=== PATIENT | male | born 1985 | race Caucasian/White ===

== ENCOUNTER 2022-07-09 00:50 | Inpatient (IN) | payer MEDICAID ==
[~2022-07-09] VITALS: Ht 157.5 cm; Wt 81.6 kg
[2022-07-09 01:14] VITALS: BP 149/90
[2022-07-09] MEDS ORDERED: DICYCLOMINE HCL LIQUID 10 MG/5 ML UDC PO ONE (01:35)
[2022-07-09] MEDS ORDERED: FAMOTIDINE 20 MG TAB PO ONE (01:35)
[2022-07-09] MEDS ORDERED: ONDANSETRON 4 MG ODT PO ONE (01:35)
[2022-07-09] MEDS ORDERED: ALUMINUM HYD/MAG/SIMETHICONE 30 ML UDC PO ONE (01:35)
[2022-07-09 01:57] LABS: APPEARANCE,URINE CLEAR (CLEAR); BILIRUBIN,URINE NEGATIVE (NEGATIVE); BLOOD, URINE NEGATIVE (NEGATIVE); COLOR,URINE YELLOW (YELLOW); LEUKOCYTE ESTERASE ,URINE NEGATIVE (NEGATIVE); NITRITE, URINE NEGATIVE (NEGATIVE); UGLUCOSE NEGATIVE (NEGATIVE)
--- NOTE | 2022-07-09 01:58 | NUR ---
Patient received on bed lying comfortably and awake. Alert and oriented x4. No acute distress. Complained of abdominal pain with the scale of 6/10. Respirations even and unlabored.
[2022-07-09 02:09] LABS: ALBUMIN 3.8 g/dL (3.4-5.0); CARBON DIOXIDE 28.9 mmol/L (21-32); CREATININE 1.1 mg/dL (0.6-1.3); POTASSIUM 3.9 mmol/L (3.5-5.1); TOTAL BILIRUBIN 0.2 mg/dL (0.0-1.0)
[2022-07-09 02:15] LABS: BASOPHILS # (AUTO) 0.1 K/uL (0.00-0.22); BASOPHILS % (AUTO) 0.3 % (0.0-2.0); EOSINOPHILS # (AUTO) 0.1 K/uL (0-0.4); EOSINOPHILS % (AUTO) 0.7 % (0.0-4.0); HEMATOCRIT 45.2 % (36-52); HEMOGLOBIN 15.7 g/dL (12.0-18.0); LYMPHOCYTES # (AUTO) 1.9 K/uL (2.0-11.5); LYMPHOCYTES % (AUTO) 9.5 % (20.5-51.1); MEAN CORPUSCULAR HEMOGLOBIN 30 pg (27-31); MEAN CORPUSCULAR HGB CONC 35 g/dL (33-37); MEAN CORPUSCULAR VOLUME 86.7 fL (80-94); MONOCYTES # (AUTO) 1.1 K/uL (0.8-1.0); MONOCYTES % (AUTO) 5.6 % (1.7-9.3); NEUTROPHILS # (AUTO) 16.5 K/uL (1.8-7.7); PLATELET COUNT (AUTO) 288 K/uL (140-450); RED BLOOD CELL COUNT(AUTO) 5.21 MIL/uL (4.20-6.10); RED CELL DISTRIBUTION WIDTH 13.3 % (11.6-13.7); WHITE BLOOD COUNT (AUTO) 19.7 K/uL (4.8-10.8)
[2022-07-09 02:25] LABS: NEUTROPHILS % (AUTO) 83.9 % (42.2-75.2)
--- NOTE | 2022-07-09 04:03 | NUR ---
[facility] TRANSPORT AT BEDSIDE
--- NOTE | 2022-07-09 04:08 | NUR ---
PT TAKEN BY [facility] TRANSPORT FOR WAIT AND RETURN TO [facility]
--- NOTE | 2022-07-09 04:14 | NUR ---
Patient was transported via gurney on an ambulance to [facility] for CT scan and accompanied by 2 cargo operations agent. Vital signs stable. No acute distress.
--- NOTE | 2022-07-09 05:02 | NUR ---
PT RETURN FROM [facility] BACK TO ER BED 9
[2022-07-09] MEDS ORDERED: HYDROcodone/APAP 5/325 MG 1 TAB TAB PO ONE (05:25)
[2022-07-09] MEDS ORDERED: ACETAMINOPHEN 325 MG TAB PO PRN (08:45)
[2022-07-09] MEDS ORDERED: DOCUSATE SODIUM 100 MG GELCAP PO PRN (08:45)
[2022-07-09] MEDS ORDERED: LORazepam 2 MG/ML VIAL IVP PRN (08:45)
[2022-07-09] MEDS ORDERED: ZOLPIDEM 10 MG TAB PO PRN (08:45)
[2022-07-09] MEDS ORDERED: POTASSIUM CHLORIDE 10 MEQ TABER PO PRN (08:45)
[2022-07-09] MEDS ORDERED: MAG SULF 2000 MG/WATER PREMIX 50 ML IV PRN (08:45)
[2022-07-09] MEDS ORDERED: ONDANSETRON 4 MG/2 ML VIAL IVP PRN ×2 (08:45→12:05)
[2022-07-09] MEDS ORDERED: MORPHINE SULFATE 2 MG/ML SYR IVP PRN (08:45)
--- NOTE | 2022-07-09 09:01 | NUR ---
Patient will be admitted to care of . Admited to Med-surg. Will go to room 111A. Belongings list completed. Report to Art TAM.
[2022-07-09 09:30] VITALS: BP 117/74
--- NOTE | 2022-07-09 09:46 | NUR ---
ADMISSION OF A 36 YEAR OLD LATVIAN SPEAKING MALE UNDER THE CARE OF DOCTOR BISHOP WITH ABDOMINAL PAIN.
[2022-07-09] MEDS: NACL 0.9% 1,000 ML IV SCH ×4 (10:21→20:25)
[2022-07-09] MEDS ORDERED: LIDOCAINE MPF 1% 10 ML ONE (10:24)
[2022-07-09] MEDS ORDERED: BUPIVACAINE-MPF/EPI 0.25% 10 ML VIAL INJ ONE (10:24)
[2022-07-09] MEDS ORDERED: fentaNYL citrate 0.05 MG/ML VIAL ONE (10:37)
[2022-07-09] MEDS ORDERED: SUCCINYLCHOLINE CHLORIDE 200 MG/10 ML VIAL IVP ONE (10:38)
[2022-07-09] MEDS ORDERED: PROPOFOL 200 MG/20 ML VIAL IV ONE (10:38)
[2022-07-09] MEDS ORDERED: SEVOFLURANE 250 ML BTL INH ONE (10:45)
[2022-07-09 10:52] LABS: PROTHROMBIN TIME 10.1 secs (10.8-13.4)
[2022-07-09] MEDS ORDERED: ROCURONIUM 50 MG/5 ML VIAL IV ONE (11:02)
[2022-07-09] MEDS ORDERED: ONDANSETRON 4 MG/2 ML VIAL ONE (11:03)
[2022-07-09] MEDS ORDERED: SUGAMMADEX SODIUM 200 MG/2 ML VIAL IV ONE (11:44)
[2022-07-09] MEDS ORDERED: MEPERIDINE 25 MG/ML SYR ONE (11:48)
[2022-07-09] MEDS ORDERED: HYDROcodone/APAP 5/325 MG 1 TAB TAB PO PRN (11:55)
[2022-07-09] MEDS ORDERED: MEPERIDINE 25 MG/ML SYR IVP PRN (12:05)
[2022-07-09] MEDS ORDERED: diphenhydrAMINE 50 MG/ML VIAL IVP PRN (12:05)
[2022-07-09] MEDS ORDERED: HYDROmorphone 1 MG/ML AMP IVP PRN (12:05)
[2022-07-09] MEDS: PIPERACILLIN/TAZOBACTAM 3.375 GM in DEXTROSE 5% 50 ML IV SCH ×2 (14:05→21:21)
[2022-07-09 14:12] VITALS: BP 110/76
[2022-07-09 16:00] VITALS: BP 110/69
--- NOTE | 2022-07-09 21:21 | NUR ---
ADMINISTERED SCHEDULED DUE MEDICATIONS. PATIENT AWAKE ALERT ORIENTED , ALGERIAN SPEAKING. NO SOB NOTED ON ROOM AIR. AFEBRILE. IVF NS INFUSING WELL. COMPLAINED OF ABDOMINAL PAIN, MEDICATED ORDERED. CALL LIGHT WITHIN REACH. SAFETY PRECAUTIONS ARE IN PLACE. NEEDS ATTENDED TO.
[2022-07-10] VITALS: BP 131/85
[2022-07-10] MEDS: NACL 0.9% 1,000 ML IV SCH ×2 (03:45→04:40)
[2022-07-10] MEDS: PIPERACILLIN/TAZOBACTAM 3.375 GM in DEXTROSE 5% 50 ML IV SCH ×2 (04:29→13:27)
[2022-07-10 07:03] LABS: BASOPHILS % (AUTO) 0.4 % (0.0-2.0); EOSINOPHILS # (AUTO) 0.1 K/uL (0-0.4); EOSINOPHILS % (AUTO) 0.9 % (0.0-4.0); HEMATOCRIT 43.7 % (36-52); HEMOGLOBIN 15.2 g/dL (12.0-18.0); LYMPHOCYTES # (AUTO) 1.8 K/uL (2.0-11.5); LYMPHOCYTES % (AUTO) 15.3 % (20.5-51.1); MEAN CORPUSCULAR HEMOGLOBIN 31 pg (27-31); MEAN CORPUSCULAR HGB CONC 35 g/dL (33-37); MEAN CORPUSCULAR VOLUME 88.3 fL (80-94); MONOCYTES # (AUTO) 0.9 K/uL (0.8-1.0); MONOCYTES % (AUTO) 7.5 % (1.7-9.3); NEUTROPHILS # (AUTO) 8.9 K/uL (1.8-7.7); NEUTROPHILS % (AUTO) 75.9 % (42.2-75.2); PLATELET COUNT (AUTO) 254 K/uL (140-450); RED BLOOD CELL COUNT(AUTO) 4.95 MIL/uL (4.20-6.10); RED CELL DISTRIBUTION WIDTH 13.2 % (11.6-13.7); WHITE BLOOD COUNT (AUTO) 11.7 K/uL (4.8-10.8)
[2022-07-10 07:08] LABS: ANION GAP 11.2 (8-16); CARBON DIOXIDE 26.4 mmol/L (21-32); CREATININE 0.9 mg/dL (0.6-1.3); POTASSIUM 3.6 mmol/L (3.5-5.1)
--- NOTE | 2022-07-10 07:20 | NUR ---
RECEIVED REPORT FROM NIGHT NURSE IRASEMA FOR CONTINUITY OF CARE. INITIAL ASSESSMENT DONE. ASLEEP AT THIS TIME. IVF INFUSING WELL. NO C/O PAIN OR DISCOMFORT. CALL LIGHT KEPT WITHIN REACH. WILL CONTINUE TO MONITOR.
--- NOTE | 2022-07-10 07:21 | NUR ---
RECEIVED REPORT FROM BRICK OFF BEARER IRASEMA FOR CONTINUITY OF CARE. INITIAL ASSESSMENT DONE. IVF INFUSING WELL. NO C/O PAIN OR DISCOMFORT. CALL LIGHT KEPT WITHIN REACH. WILL CONTINUE TO MONITOR.
--- NOTE | 2022-07-10 07:26 | NUR ---
ALL NEEDS ATTENDED AND MET THROUGHOUT THE SHIFT. ENDORSED TO MORNING SHIFT NURSE FOR CONTINUITY OF CARE. PATIENT STABLE.
[2022-07-10 08:00] VITALS: BP 137/83
[2022-07-10] MEDS ORDERED: AMOX-999 PO (08:56)
[2022-07-10] MEDS ORDERED: IBUP200C97 PO (08:58)
--- NOTE | 2022-07-10 11:38 | NUR ---
SEEN BY DR. POTTER. CLEARED FOR DISCHARGE AT HIS STANDPOINT. F/U [facility]. DR. LIZARRAGA NOTIFIED AGREED FOR DISCHARGE.
--- NOTE | 2022-07-10 14:05 | NUR ---
PT. LEFT. DISCHARGE TO HOME. TRANSPORTED BY PRIVATE VEHICLE PER WHEELCHAIR. ALERT AND ORIENTED X 4. RESP. EVEN AND UNLABORED. ID BAND AND IV REMOVED. DISCHARGE PAPERWORK, SIGNED AND DISCUSS BY PT. PERSONAL BELONGINGS TAKEN. WITH SKIN CONDITION FOLLOWS: 3 INCISIONS TO ABDOMEN. NO REDNESS, NO BLEEDING NOTED. NO C/O PAIN OR DISCOMFORT. REMAINS STABLE.
== END 2022-07-10 14:05 | disposition home or self-care (01) | DRG 234 ==
LOC: MED 00:50 → MTU 08:40
PROVIDERS: ADMIT Family Medicine; ATTEND Family Medicine
PROC: 0DTJ4ZZ Resection of Appendix, Percutaneous Endoscopic Approach (ICD-10-PCS; principal; 2022-07-09 10:30)
DX: K35.80 Unspecified acute appendicitis (principal); E66.9 Obesity, unspecified; F17.210 Nicotine dependence, cigarettes, uncomplicated; Z20.822 Contact with and (suspected) exposure to COVID-19; Z68.32 Body mass index [BMI] 32.0-32.9, adult
CPT/HCPCS: 36415; 71045; 80048; 80053; 81003; 82374; 83690; 83735; 85025; 85610; 85730; 86886; 86900; 86901; 87081; 96374; 99285; J0330; J0694; J2001; J2175; J2270; J2405; J2543; J2704; J3010; J3490; J7030; J7060; Q0092; Q0162

== ENCOUNTER 2022-07-31 20:12 | Emergency (ER) | payer MEDICAID ==
[~2022-07-31] VITALS: Ht 157.5 cm; Wt 77.1 kg
[~2022-07-31 20:12] MED LIST: AMOX-999 PO; IBUP200C97 PO
[2022-07-31 20:59] VITALS: BP 125/85
[2022-07-31] MEDS ORDERED: KETOROLAC 30 MG/ML VIAL IM ONE (22:15)
[2022-07-31] MEDS ORDERED: CYCLOBENZAPRINE 10 MG TAB PO ONE (22:15)
[2022-07-31] MEDS ORDERED: GABAPENTIN 300 MG CAP PO ONE (22:15)
[2022-07-31] MEDS ORDERED: predniSONE 20 MG TAB PO ONE (22:15)
--- NOTE | 2022-07-31 22:29 | NUR ---
PT TAKEN TO BED 5
--- NOTE | 2022-07-31 22:35 | NUR ---
Dr. Medina examining patient.
[2022-07-31] MEDS ORDERED: PRED20TA5 PO (23:13)
[2022-07-31] MEDS ORDERED: IBUP-2218 PO (23:13)
[2022-07-31] MEDS ORDERED: CYCL-711 PO (23:13)
[2022-07-31] MEDS ORDERED: LID5T TP (23:13)
[2022-07-31] MEDS ORDERED: LIDOCAINE 5% 1 EA PATCH TP ONE (23:22)
[2022-07-31 23:57] VITALS: BP 125/85
--- NOTE | 2022-07-31 23:57 | NUR ---
Patient discharged with v/s stable. Written and verbal after care instructions given and explained. Patient alert, oriented and verbalized understanding of instructions. Ambulatory with steady gait. All questions addressed prior to discharge. ID band removed. Patient advised to follow up with PMD. Rx of FLEXERIL, IBUPROFEN, LIDODERM, DELTASONE given. Patient educated on indication of medication including possible reaction and side effects. Opportunity to ask questions provided and answered.
[2022-08-01] MEDS ORDERED: LIDOCAINE 5% 1 EA PATCH TP SCH (09:00)
== END 2022-07-31 23:57 | disposition home or self-care (01) ==
LOC: MED 20:12
DX: M54.32 Sciatica, left side (principal); I10 Essential (primary) hypertension; Z79.899 Other long term (current) drug therapy
CPT/HCPCS: 96372; 99284; J1885; J7512